=== PATIENT | female | born 1960 | race Two or more races ===

== ENCOUNTER 2017-03-10 20:48 | Emergency (ER) | payer OTHER ==
[~2017-03-10] VITALS: Ht 160 cm; Wt 81.6 kg
--- NOTE | 2017-03-10 21:41 | Emergency Room Report ---
History of Present Illness General Chief Complaint: Lower Extremity Injury Source: Patient Present Illness HPI Patient is a 56 yo female presented after increased left great toe pain after fall. Patient gradual onset of symptoms. Patient reported having fallen twice today. She reports increased pain to her left great toe. She denied any prior history of gout. She denies alcohol use.The patient reports having hit her head denies loss of consciousness. Allergies: Coded Allergies: No Known Allergies (Unverified , 03/10/17) Patient History Past Medical History: see triage record Now: No Reviewed Nursing Documentation: PMH: Agreed, PSxH: Agreed Nursing Documentation-PMH Hx Hypertension: Yes Review of Systems All Other Systems: negative except mentioned in HPI Physical Exam Vital Signs Date Time Temp Pulse Resp B/P Pulse Ox O2 Delivery O2 Flow Rate FiO2 03/10/17 20:41 97.5 80 16 120/78 100 Room Air General Appearance: well appearing, no apparent distress, alert, GCS 15 Head: normocephalic, atraumatic ENT: hearing grossly normal, normal voice Neck: full range of motion, supple Respiratory: no respiratory distress, speaking full sentences Musculoskeletal: back normal, no calf tenderness Neurologic: oriented x3, responsive, chief credit officer III-XII nml as tested, normal gait Psychiatric: mood/affect normal Skin: no rash, other - slight swelling to left great toe Medical Decision Making Diagnostic Impression: Primary Impression: Toe sprain Additional Impression: Minor head injury ER Course Patient presented for toe pain. Differential diagnosis included wasn't limited to osteomyelitis, fracture, ingrown toenail, contusion, gouty arthritis among others. CT the head read by radiologist showed lacunar infarct. X-ray imaging of the right foot 3 view interpreted by me showed normal bony with no evident fracture. The patient is advised to follow up with primary care doctor in 2-3 days. Patient is advised to return if any worsening condition or if any changes in status that are concerning. Last Vital Signs Date Time Temp Pulse Resp B/P Pulse Ox O2 Delivery O2 Flow Rate FiO2 03/10/17 20:41 97.5 80 16 120/78 100 Room Air Status: improved Disposition: HOME, SELF-CARE Condition: Stable Scripts Acetaminophen* (ACETAMINOPHEN EXTRA STRENGTH*) 500 Mg Tablet 500 MG ORAL Q8H Y for Fever/Headache/Mild Pain, #30 TAB Prov: Cristóbal Archer 03/10/17 Referrals: [facility] (PCP) Cristóbal Archer Mar 10, 2017 21:41
[2017-03-10] MEDS ORDERED: ACETAMINOPHEN500 M3 ORAL (21:49)
[2017-03-10 22:45] VITALS: BP 118/76
--- NOTE | 2017-03-11 09:17 | Diagnostic Imaging Report ---
Indications: Pain, status post fall Technique: Spiral acquisitions obtained through the brain. Angled axial and coronal 5 x 5 mm slices were reconstructed. Total dose length product 1245 mGycm. CTDI vol(s) 70 mGy. Dose reduction achieved using automated exposure control Comparison: None Findings: Old lacunar infarct is seen in the left tinajero radiata, extending into the upper lentiform nucleus. Tiny old lacunar infarct is seen in the posterior limb of the right internal capsule. No acute hemorrhage or edema. No mass effect or midline shift. Normal size ventricles and extra axial CSF spaces. Normal watt-white differentiation. Calvarium. Visualized orbits and sinuses are unremarkable. Impression: Negative for acute intracranial bleed or mass effect Bilateral basal ganglia old lacunar infarcts This agrees with the preliminary interpretation provided overnight by Dr. Castañeda The CT scanner at [facility] is accredited by the [employer] and the scans are performed using protocols designed to limit radiation exposure to as low as reasonably achievable to attain images of sufficient resolution adequate for diagnostic evaluation.
--- NOTE | 2017-03-11 11:11 | Diagnostic Imaging Report ---
Indication: PAIN Technique: 3 views left foot Comparison: none Findings: There is metatarsus adductus and mild hammertoe formation. No acute fractures. No dislocations. Impression: No acute process
== END 2017-03-10 22:45 | disposition home or self-care (01) ==
LOC: EDBD 20:48 → EMR 21:25
DX: S93.502A Unspecified sprain of left great toe, initial encounter (principal); S09.90XA Unspecified injury of head, initial encounter; I10 Essential (primary) hypertension; W18.30XA Fall on same level, unspecified, initial encounter; Y92.410 Unspecified street and highway as the place of occurrence of the external cause
CPT/HCPCS: 70450; 99284